=== PATIENT | female | born 1965 | race Caucasian/White ===

== ENCOUNTER 2017-01-15 18:12 | Inpatient (IN) | payer MEDICAID ==
[2017-01-15] MEDS ORDERED: MAG HYDROX/AL HYDROX/SIMETH 30 ML CUP PO PRN (21:13)
[2017-01-15] MEDS ORDERED: MAGNESIUM HYDROXIDE 2,400 MG/10 ML CUP PO PRN (21:13)
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
[2017-01-15] MEDS: LORazepam 1 MG TAB PO PRN (23:06)
[2017-01-16] MEDS: NICOTINE 14MG/24HR PATCH TRANSDERM SCH (08:26)
[2017-01-16] MEDS: LORazepam 1 MG TAB PO PRN ×3 (08:30→23:44)
[2017-01-16] MEDS: cloNIDine HCL 0.2 MG TAB PO SCH ×3 (09:17→21:26)
[2017-01-16 09:21] LABS: Basophils % (A) 0 %; CH 30.9; CHCM 32.8; Eosinophils # (A) 0.2 k/uL (0-0.7); Eosinophils % (A) 2 %; HCT 47.5 % (34.0-46.0); HDW 2.34; HGB 15.9 gm/dL (11.4-16.0); Luc # (Auto) 0.11; Luc % (Auto) 1; Lymphocytes # (A) 1.6 k/uL (1.0-4.8); Lymphocytes % (A) 19 %; MCH 31.6 pg (25.0-35.0); MCHC 33.4 g/dL (31.0-37.0); MCV 94.5 fL (80.0-100.0); Mean Platelet Volume 7.8; Monocytes # (A) 0.3 k/uL (0-1.0); Monocytes % (A) 3 %; Neutrophils # (A) 6.5 k/uL (1.3-7.7); Neutrophils % (A) 74 %; RBC 5.02 m/uL (3.80-5.40); RDW 14.1 % (11.5-15.5); WBC 8.8 k/uL (3.8-10.6)
[2017-01-16 09:47] LABS: Bilirubin, Delta 0.2 mg/dL (0.0-0.2); Calcium 9.5 mg/dL (8.4-10.2); Potassium 4.9 mmol/L (3.5-5.1); Total Bilirubin 0.3 mg/dL (0.2-1.3); Total Protein 6.7 g/dL (6.3-8.2)
[2017-01-16] MEDS: ACETAMINOPHEN TAB 325 MG TAB PO PRN (10:16)
[2017-01-16] MEDS: PARoxetine 10 MG TAB PO SCH (10:16)
[2017-01-16 10:17] LABS: Hepatitis B Surface Ag Index 0.06
[2017-01-16 10:22] LABS: Hepatitis B Core IgM Index 0.03
[2017-01-16 10:34] LABS: Hepatitis B Surface Antibody Negative (Negative); Hepatitis C Virus IgG Ab Negative (Negative); Hepatitis C Virus IgG Index 0.02
[2017-01-16 12:13] LABS: Creatine Kinase MB 0.6 ng/mL (0.0-2.4)
[2017-01-16 12:18] LABS: Appearance,Urine Clear (Clear); Bilirubin,Urine Negative (Negative); Glucose,Urine (UA) Negative (Negative); Ketones,Urine Negative (Negative); Leukocyte Esterase,Urine Large (Negative); Mucus,Urine Rare /hpf; Nitrite,Urine Negative (Negative); PH, Urine 6.5 (5.0-8.0); Particle Count 2241; Protein,Urine Negative (Negative); RBC,Urine 1 /hpf (0-5); Specific Gravity,Urine 1.009 (1.001-1.035); Squamous Epithelial Cell,Urine 2 /hpf (0-4); UA Billing (MACRO vs. MICRO) MICRO; Urobilinogen,Urine <2.0 mg/dL (<2.0); WBC,Urine 38 /hpf (0-5)
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
[2017-01-16] MEDS ORDERED: amLODIPine 5 MG TAB PO SCH (17:45)
--- NOTE | 2017-01-16 17:57 | P.PN ---
Subjective Principal diagnosis: Patient was seen and examined today per RN request due to uncontrolled blood pressure This is a 52-year-old female without regular follow up with any physicians. Patient with history of hypertension and depression. She reports that she missed couple days of Catapres at home. She is admitted to the psych unit due to attempting to cut her wrist however she denies any suicidal ideation and she reports that she wants to live but she did which she did seeking attention from her . Currently she denies any chest pain any headaches any vision changes or hearing changes she denies any focal neurologic deficits she denies any abdominal pain nausea or vomiting there is no changes in her speech which is coherent. She denies any hematuria. I was called by the nurses due to blood pressure in the 230s. Patient also admitted to doing cocaine 2-3 days ago Objective - Vital Signs Vital signs: Vital Signs Temp 99.4 F 01/16/17 14:05 Pulse 53 L 01/16/17 17:15 Resp 18 01/16/17 17:15 BP 197/109 01/16/17 17:15 Pulse Ox 99 01/16/17 14:05 Intake & Output 01/15/17 01/16/17 01/16/17 18:59 06:59 18:59 Weight 78.3 kg Constitutional: vital signs stable, Not in acute distress, pleasant, conversant Eyes: Pupils equal round reactive to light Lungs: Clear to auscultation bilaterally, clear to percussion, normal respiratory effort Cardiovascular: Regular rate and rhythm, no murmurs, no gallops, no rubs, no peripheral leg edema Extremities: No digital cyanosis or clubbing, peripheral pulses palpable and equal over bilateral radial arteries and dorsalis pedis artery, no calf muscle tenderness Psych: Alert, oriented to place, person and time Neuro: Cranial nerves II-XII grossly intact, no focal sensory deficits to touch , strength is grossly intact throughout I did manual blood pressure check myself and blood pressure was 180/110 in the right arm and 175/105 over the left arm with a heart rate in the range of 60-65 - Labs CBC & Chem 7: 01/16/17 08:46 01/16/17 08:46 Labs: Abnormal Lab Results - Last 24 Hours (Table) 01/16/17 01/16/17 01/16/17 Range/Units 08:46 08:46 11:46 Hct 47.5 H (34.0-46.0) % Chloride 110 H (98-107) mmol/L Creatinine 1.35 H (0.52-1.04) mg/dL Glucose 70 L (74-99) mg/dL Ur Leukocyte Esterase (Negative) Urine WBC (0-5) /hpf Urine Mucus (None) /hpf Urine Opiates Screen Detected H (NotDetected) U Benzodiazepines Scrn Detected H (NotDetected) Urine Cocaine Screen Detected H (NotDetected) 01/16/17 Range/Units 11:48 Hct (34.0-46.0) % Chloride (98-107) mmol/L Creatinine (0.52-1.04) mg/dL Glucose (74-99) mg/dL Ur Leukocyte Esterase Large H (Negative) Urine WBC 38 H (0-5) /hpf Urine Mucus Rare H (None) /hpf Urine Opiates Screen (NotDetected) U Benzodiazepines Scrn (NotDetected) Urine Cocaine Screen (NotDetected) Assessment and Plan (1) Malignant hypertension Status: Acute (2) Cocaine abuse Status: Acute (3) Depression Status: Acute (4) ROMÁN (acute kidney injury) Status: Acute Plan: Patient blood pressure is uncontrolled most likely due to multifactorial effect of sympathetic overactivity secondary to withdrawal of clonidine plus ingestion of sympathomimetic drug cocaine I would recommend restarting her clonidine with close monitoring of her blood pressure goal is to lower her mean arterial pressure by 10-20% over the first 24 hours which is currently achieved I would not target a systolic blood pressure less than 185 at this point Initially mean arterial pressure was as high as 153, goal would to be not to be lowered to less than 100-110 to avoid brain hypoperfusion, especially that the patient is currently asymptomatic Acute kidney injury secondary to hypertensive nephrosclerosis, urine analysis did not show evidence of hematuria Avoid nephrotoxic medications monitor urine output Patient counseled to avoid drug of abuse, avoid beta bear due to patient abuse of cocaine EKG was unremarkable except for bradycardia Cardiac enzymes are unremarkable Overall patient feels comfortable and asymptomatic we'll continue to monitor closely in the psych unit Depression and suicide management per psych
[2017-01-16] MEDS: MELATONIN 5 MG TABLET PO SCH (21:25)
[2017-01-17 07:06] VITALS: TEMP 98
[2017-01-17] MEDS: NICOTINE 14MG/24HR PATCH TRANSDERM SCH (08:08)
[2017-01-17] MEDS: cloNIDine HCL 0.2 MG TAB PO SCH ×3 (08:09→20:59)
[2017-01-17] MEDS: PARoxetine 10 MG TAB PO SCH (08:09)
[2017-01-17] MEDS: LORazepam 1 MG TAB PO PRN ×2 (08:54→20:04)
[2017-01-17] MEDS ORDERED: BACITRACIN OINT 1 EACH PACKET TOPICAL ONE (12:56)
--- NOTE | 2017-01-17 13:11 | P.PN ---
Progress Note - Text Interval History: Patient is a 51-year-old female who was seen today and reports that she slept well and is eating well and does not report any nausea or vomiting. She states she is not having any shaking or sweating. She states that she is not having any suicidal ideation and is not feeling anxious or depressed. Patient reports no side effects from the Paxil. Patient reports use of 2 doses of Ativan yesterday and one dose of far today. Patient states that she has no urges to use alcohol but continues to have an urge to smoke and asked for her nicotine patch to be increased. Mental Status: Appearance/Attitude: Patient is neatly and appropriately dressed , makes good eye contact and is cooperative. Behavior: Patient does not display any psychomotor agitation or retardation. Speech/Language: Patient's speech is spontaneous and of normal volume and rhythm and she is coherent. Thought Process: Patient is goal-directed and there is no evidence of tangential or circumstantial thought and no loose associations or flight of ideas. Thought Content: Patient denies any auditory or visual hallucinations no delusions or paranoid ideation were elicited. The patient states she slept and is eating well. Patient reports no nausea and vomiting and no sweating or shaking. She reports no urges to use alcohol but asked for the nicotine patch to be increased. Suicidal/Homicidal Ideation: Patient denies current suicidal or homicidal ideation Sensorium/Cognition: Patient is alert and oriented to person, place, and time and her memory is grossly intact. Mood/Affect: Patient's mood is pleasant and her affect is appropriate. Insight/Judgement: Patient's insight and judgment are fair. Assessment: Patient reports no side effects from beginning the Paxil at 10 mg and states that she slept well and is eating well. She has used 2 doses of Ativan yesterday and 1 today. Her blood pressure is responding to the treatment with Catapres. Patient continues however to have a low pulse rate. Patient states that she is not having any suicidal or homicidal thoughts and no thoughts to do self-injurious behavior. She reports that she is not feeling anxious or depressed. Patient's creatinine is also elevated to 1.35 and her serology was negative. Plan: Patient will continue on Paxil 10 mg, Ativan when necessary to target any withdrawal symptoms. Will ask outside medical sales representative to evaluate the patient's low pulse rate and need for further workup. Patient will be referred to a dual diagnosis follow-up after discharge as well as a referral for a primary care physician. Will consider discharge later this week.
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
[2017-01-17] MEDS: amLODIPine 5 MG TAB PO SCH (14:19)
[2017-01-17 14:40] LABS: Calcium 9.2 mg/dL (8.4-10.2); Potassium 4.3 mmol/L (3.5-5.1)
[2017-01-17] MEDS: ACETAMINOPHEN TAB 325 MG TAB PO PRN (16:36)
[2017-01-17] MEDS: MELATONIN 5 MG TABLET PO SCH (20:59)
[2017-01-18] MEDS: cloNIDine HCL 0.2 MG TAB PO SCH (08:47)
[2017-01-18] MEDS: PARoxetine 10 MG TAB PO SCH (08:47)
[2017-01-18] MEDS: amLODIPine 5 MG TAB PO SCH (08:47)
[2017-01-18] MEDS: LORazepam 1 MG TAB PO PRN (08:48)
[2017-01-18 08:51] VITALS: BP 179/92; PULSE 62; RESP 18
[2017-01-18] MEDS ORDERED: NICOTINE 21MG/24HR PATCH TRANSDERM SCH (09:00)
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
[2017-01-18 09:21] LABS: Basophils % (A) 1 %; CH 30.8; CHCM 32.9; Eosinophils # (A) 0.2 k/uL (0-0.7); Eosinophils % (A) 2 %; HDW 2.31; HGB 15.6 gm/dL (11.4-16.0); Luc # (Auto) 0.13; Luc % (Auto) 2; Lymphocytes # (A) 1.7 k/uL (1.0-4.8); Lymphocytes % (A) 22 %; MCH 31.3 pg (25.0-35.0); MCHC 33.2 g/dL (31.0-37.0); MCV 94.2 fL (80.0-100.0); Mean Platelet Volume 7.6; Monocytes # (A) 0.3 k/uL (0-1.0); Monocytes % (A) 4 %; Neutrophils # (A) 5.4 k/uL (1.3-7.7); Neutrophils % (A) 71 %; RBC 4.99 m/uL (3.80-5.40); RDW 13.9 % (11.5-15.5); WBC 7.6 k/uL (3.8-10.6); WBC (Perox) 7.88
[2017-01-18 09:47] LABS: Calcium 9.5 mg/dL (8.4-10.2); Potassium 4.4 mmol/L (3.5-5.1)
== END 2017-01-18 10:07 | disposition home or self-care (01) | DRG 885 ==
LOC: 3MHU 19:16
PROVIDERS: ADMIT Psychiatry & Neurology Psychiatry; ATTEND Psychiatry & Neurology Psychiatry
DX: F33.1 Major depressive disorder, recurrent, moderate (principal); N17.9 Acute kidney failure, unspecified; R45.851 Suicidal ideations; F13.239 Sedative, hypnotic or anxiolytic dependence with withdrawal, unspecified; I10 Essential (primary) hypertension; F14.10 Cocaine abuse, uncomplicated; F11.90 Opioid use, unspecified, uncomplicated; F10.20 Alcohol dependence, uncomplicated; S51.812A Laceration without foreign body of left forearm, initial encounter; Z79.899 Other long term (current) drug therapy; Z81.8 Family history of other mental and behavioral disorders
CPT/HCPCS: 80048; 80053; 80306; 81001; 81025; 82248; 82550; 82553; 84443; 85025; 86705; 86706; 86803; 87340; 87350; 87390; 93005

== ENCOUNTER 2017-06-06 19:56 | Emergency (ER) | payer OTHER ==
[2017-06-06 20:08] VITALS: RESP 18; TEMP 98.6
[2017-06-06] MEDS ORDERED: cloNIDine HCL 0.2 MG TAB PO STA (20:45)
[2017-06-06 20:55] LABS: Amphetamine Screen,Urine Not Detected (NotDetected); Barbiturate Screen,Urine Not Detected (NotDetected); Benzodiazepines Screen,Urine Detected (NotDetected); Cocaine Screen,Urine Not Detected (NotDetected); Methadone Screen, Urine Not Detected (NotDetected); Opiate Screen,Urine Detected (NotDetected); Oxycodone Screen, Urine Not Detected (NotDetected); Phencyclidine Screen,Urine Not Detected (NotDetected); Tricyclic Antidepressant,Urine Not Detected (NotDetected); Urn Cannabinoid Scrn Not Detected (NotDetected)
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
[2017-06-06 22:17] VITALS: BP 181/90; PULSE 57
[2017-06-06] MEDS ORDERED: ACETAMINOPHEN TAB 500 MG TAB PO STA (23:27)
== END 2017-06-06 23:36 | disposition home or self-care (01) ==
LOC: EC 19:56
DX: F10.11 Alcohol abuse, in remission (principal); F14.11 Cocaine abuse, in remission; F17.200 Nicotine dependence, unspecified, uncomplicated
CPT/HCPCS: 80306; 81025; 82075; 99284